=== PATIENT | female | born 1955 | race African-American/Black ===

== ENCOUNTER 2016-12-23 15:48 | Emergency (ER) | payer OTHER ==
[~2016-12-23] VITALS: Ht 162.6 cm; Wt 87.3 kg
[2016-12-23 15:51] VITALS: BP 121/86; PULSE 78; RESP 18; O2SAT 100
--- NOTE | 2016-12-23 16:06 | ED.REPORT ---
HPI-General Illness Date of Service Dec 23, 2016 ED Provider: Erick Mancilla MD The patient is a 61 year old female with history of congestive heart failure and dilated cardiomyopathy on Coreg and furosemide, who presents to the emergency department from urgent care for shortness of breath that began 3 days ago. Her symptoms have worsened throughout the day. She has also noticed a cough and wheezing. Her symptoms are worse with exertion. She has had similar symptoms in the past when she was diagnosed with congestive heart failure. She denies fever, chills, productive cough, congestion, ear pain, chest pain, nausea , vomiting or diarrhea. Nursing Notes Stated Complaint: SOB Chief Complaint: Respiratory Distress Nursing Notes Reviewed: Yes Allergies: Coded Allergies: Penicillins (Verified Allergy, Unknown, Rash, 12/23/16) Scheduled Carvedilol (Carvedilol) 12.5 Mg Tablet 12.5 MG PO BID Digoxin (Digoxin) 250 Mcg Tablet 250 MCG PO QAM Folic Acid (Folic Acid) 0.8 Mg Tablet 0.8 MG PO DAILY Furosemide (Furosemide) 20 Mg Tab 20 MG PO QAM Levocarnitine Tartrate (l-Carnitine) 500 Mg Capsule 1,000 MG PO DAILY Lisinopril (Lisinopril) 10 Mg Tablet 5 MG PO BID [place]-3/Dha/Epa/Fish Oil (Fish Oil 1,400 mg Softgel) 1 Each Capsule.dr 1 EACH PO DAILY Selenium (Selenium) 100 Mcg Tablet 100 MCG PO DAILY Spironolactone (Spironolactone) 25 Mg Tablet 12.5 MG PO QAM Turmeric Root Extract (Turmeric) 500 Mg Capsule 1,000 MG PO DAILY Zinc Gluconate (Zinc) 30 Mg Tablet 30 MG PO DAILY General Time Seen by MD: 16:05 Chief Complaint Other (shortness of breath) Hx Obtained From: Patient Arrived By: Walk-in Sudden in Onset?: No Onset Occurred: 3 days ago Symptom Duration: Since onset Severity: Current: No pain currently Severity: Maximum: No pain Recent Healthcare: No recent doctor visit, No recent hospitalization Similar Sx Previous: Yes Past Medical History Past Medical History Notes: Technical Illustrations Map Inker: Dr. Blair Past Medical History CHF Dilated cardiomyopathy Social History Other Social History: Good social support, Local resident Ambulatory Status Independent Review of Systems Full Review of Systems Constitutional: Denies: Chills, Fever Ears / Nose / Throat: Denies: Earache bilateral, Nasal congestion Respiratory: Reports: Non-productive cough, Shortness of breath, Wheezing, Denies: Prod cough, bloody, Prod cough, brown, Prod cough, clear, Prod cough , green, Prod cough, white, Prod cough, yellow Cardiovascular: Denies: Chest pain GI: Denies: Abdominal pain, Diarrhea, Vomiting Complete sys rev & neg: except as marked. Physical Exam Vital Signs Vital Signs Date Time Temp Pulse Resp B/P Pulse Ox O2 Delivery O2 Flow Rate FiO2 12/23/16 17:34 36.7 72 120/77 99 Room Air 12/23/16 15:51 37.2 78 18 121/86 100 Nasal Cannula Initial VS: Reviewed Head / Eyes: Atraumatic, Normocephalic, PERRL ENT: Mucous membranes moist, Conjunctiva normal, No scleral icterus Neck: Supple, Non-tender, Full range of motion Lymphatic: No lymphadenopathy Extremities: Vascular intact, Neuro intact Skin: Warm, Dry, No cyanosis Neurologic: Alert, Oriented, Nonfocal Psychiatric: Mood/affect normal, Behavior normal, Normal thought content General/Constitutional: Awake, Alert, Cooperative Respiratory / Chest: Breath sounds = bilat, No respiratory distress, No stridor , No chest tenderness, No chest wall deformity Scattered crackles at the bases. No wheezing. Cardiovascular: Heart rate NL, Regular rhythm, Heart sounds NL, No gallop, No murmurs, No rubs, Cap refill not delayed, Peripheral circulation NL Abdomen: Atraumatic, Soft, Non-tender, No guarding, No rebound, BS normoactive , No distention Lower Extremity / Pelvis / MS: Neurologic intact, Vascular intact Trace bilateral lower extremity pitting edema. No unilateral calf swelling or tenderness. Interpretation & Diagnostics Lab Results Interpretation Result Diagram: 12/23/16 1607 12/23/16 1607 Test 12/23/16 16:07 White Blood Count 7.8th/mm3 (3.8-10.1) Red Blood Count 4.21mil/mm3 (3.90-5.20) Hemoglobin 13.1g/dL (12.0-15.6) Hematocrit 39.4% (35.0-46.0) Mean Corpuscular Volume 93.6fL (81-100) Mean Corpuscular Hemoglobin 31.1pg (27.0-35.0) Mean Corpuscular Hemoglobin Concent 33.2% (32.0-37.0) Red Cell Distribution Width 12.1% (12.3-15.4) Platelet Count 287bil/L (150-400) Neutrophils (%) (Auto) 46.9% (40-74) Lymphocytes (%) (Auto) 40.9% (14-46) Monocytes (%) (Auto) 8.6% (4-12) Eosinophils (%) (Auto) 3.4% (0-5) Basophils (%) (Auto) 0.1% (0-3) Hold Purple Top Tube Received (Received) Hold Blue Top Tube Received (Received) Urine Color Yellow (YELLOW) Urine Appearance Clear (CLEAR,HAZY) Urine pH 5.5 (5.0-8.0) Urine Specific [place] 1.020 (1.003-1.035) Urine Protein Negativemg/dL (NEG,TRACE) Urine Glucose (UA) Negativemg/dL (NEGATIVE) Urine Ketones Negativemg/dL (NEGATIVE) Urine Occult Blood Negative (NEGATIVE) Urine Nitrite Negative (NEGATIVE) Urine Bilirubin Negative (NEGATIVE) Urine Urobilinogen Normalmg/dL (NORMAL) Urine Leukocyte Esterase Negative (NEGATIVE) Urine RBC 0-2/hpf (0-2) Urine WBC 0-5/hpf (0-5) Urine Epithelial Cells Few/hpf (NONE-MOD) Urine Crystals None seen (NONE SEEN) Urine Bacteria Few/hpf (NONE-FEW) Urine Hyaline Casts None/lpf (NONE) Urine Granular Casts None seen (NONE SEEN) Urine Waxy Casts None seen (NONE SEEN) Urine Red Blood Cell Casts None seen (NONE SEEN) Urine White Blood Cell Casts None seen (NONE SEEN) Urine Mucus None seen (None Seen) Urine Trichomonas None seen (NONE SEEN) Urine Yeast None (NONE SEEN) Urinalysis Comment None Urine Culture Reflexed Not indicated Hold Urine Received (Received) Sodium Level 139mEq/L (134-144) Potassium Level 4.2mEq/L (3.5-5.2) Chloride Level 100mEq/L (97-108) Carbon Dioxide Level 22mmol/L (18-29) Blood Urea Nitrogen 14mg/dL (8-27) Creatinine 0.82mg/dL (0.57-1.00) Estimat Glomerular Filtration Rate 91mL/min (>59) Glucose Level 106mg/dL (60-99) Calcium Level 10.1mg/dL (8.5-10.1) Total Bilirubin 0.3mg/dL (0.0-1.2) Aspartate Amino Transf (AST/SGOT) 23U/L (0-50) Alanine Aminotransferase (ALT/SGPT) 26U/L (0-32) Alkaline Phosphatase 73U/L (25-165) Troponin T < 0.010ug/L (0.0-0.011) Pro-B-Type Natriuretic Peptide 15.02pg/mL (0-287) Total Protein 8.2g/dL (6.4-8.4) Albumin 4.5g/dL (3.4-5.0) Hold Red Top Tube Received (Received) Hold [place] Top Tube Received (Received) ECG Interpretation ECG Interpretation: Sinus rhythm with a rate of 71 bpm There are diffuse T wave inversions in the anterolateral leads as well as lead III, aVF, and lead II No ST segment elevation The only prior EKG I could find was from 2009 and is very low quality scan however it appears that T wave inversions are now more pronounced Time: 16:25 Interpreted by: ED physician X-Ray Chest Interpretation Chest Xray Interpretation: IMPRESSION: Mild cardiomegaly, without acute cardiopulmonary disease. Dictated by: Richard Oshea M.D. on 12/23/2016 at 16:25 Interpretation / Wet Read by: Interpret - Radiologist Re-Eval/Medical Decision Med Decision/Clinical Course The patient is a 61 year old female with history of congestive heart failure and dilated cardiomyopathy on Coreg and furosemide, who presents to the emergency department from urgent care for shortness of breath that began 3 days ago. Her symptoms have worsened throughout the day. She has also noticed a cough and wheezing. Her symptoms are worse with exertion. She has had similar symptoms in the past when she was diagnosed with congestive heart failure. She denies fever, chills, productive cough, congestion, ear pain, chest pain, nausea , vomiting or diarrhea. Here in the emergency department the patient is afebrile, hemodynamically stable and in no apparent distress. Reviewed echocardiogram from 07/03/2010 -Impression: Severe ventricular enlargement with severe global systolic dysfunction, consistent with dilated cardiomyopathy. Moderate right ventricular dysfunction. Moderate mitral dysfunction. Mild pulmonary hypertension. Mild biatrial enlargement. Small circumferential pericardial effusion. Interpreted by Adonay Keita M.D. CXR: mild cardiomegaly, no pulmonary edema or focal pneumonia. LABS: CBC unremarkable, CMP unremarkable, troponin negative, BNP 15, UA unremarkable Symptoms are mild and at this time she has 100% oxygen saturation on room air. No evidence of pulmonary edema or decompensated congestive heart failure. There is no evidence of pneumonia or pneumothorax. The patient is comfortable and in no apparent distress. She is taking all of her prescribed medications. She has no recent major risk factors for pulmonary embolism and her presentation is not suggestive thereof. Patient was discussed with her manufacturing planner and reviewed her workup and presentation thus far. She will be seen in clinic tomorrow at 2 PM for an echocardiogram. It is not felt that she requires admission at this time. While she reports some wheezing there is no wheezing auscultated on exam she has no history of response to bronchodilators. I do not feel that this will be of much help. Prior to discharge follow-up and return precautions were reviewed in detail with the patient who verbalized understanding and agreement with the plan. The patient was discharged in stable condition. Source of Hx: Old records Time of Eval: 16:59 Re-Evaluation/Progress Note: Discussed plan for workup. Time of Eval: 17:10 Re-Evaluation/Progress Note: Rechecked the patient. Discussed plan for discharge. All questions were addressed. Consultation #1: Referral / Consult Name: Martin Blair MD Consulted With: Cardiology Call Returned at: 16:55 Back Winder: Agrees with eval, Agrees with plan Note: Agrees with plan for workup for CHF exacerbation Consultation #2: Referral / Consult Name: Martin Blair MD Consulted With: Cardiology Requested Call at: 17:07 Call Returned at: 17:09 Back Winder: Will see in office, Agrees with eval, Agrees with plan Counseled Regarding: Diagnosis, Lab results, Need for follow-up, When/why to return to ED Discharge & Departure Primary Impression: Shortness of breath Additional Impressions: History of congestive heart failure Dilated cardiomyopathy Wheezing Disposition: Home Discharge Condition All VS Reviewed: Yes Condition: Stable Additional Instructions: Thank you for seeking care at the emergency room. Our primary goal today in the ED was to evaluate you for any life-threatening conditions. Your evaluation was reassuring. I spoke to Dr. Blair and he would like you to go to his office tomorrow at 2 PM for an echocardiogram. Please arrive early for check-in. You should return to the ED immediately if you develop increased work of breathing, chest pain, fevers, vomiting, lightheadedness, weakness or any other concerning signs or symptoms. Thank you for letting us partake in your care today. Referrals: Juvenal Garcia (PCP) Martin Blair MD Scribe Attestation Portions of this note were transcribed by Devora Hernandez. I, Dr. Mancilla personally performed the history, physical exam and medical decision-making; I reviewed and confirmed the accuracy of the information in the transcribed note. Signed by: Aishwarya Sarabia, 12/23/2016 at 1725. copies to: Martin Blair MD; Juvenal Garcia Beck O MD Dec 23, 2016 16:06 Devora Hernandez Dec 23, 2016 16:21
[2016-12-23 16:21] LABS: BASOPHILS % (AUTO) 0.1 % (0-3); EOSINOPHILS % (AUTO) 3.4 % (0-5); MONOCYTES % (AUTO) 8.6 % (4-12); Mean Corpuscular Hemoglobin 31.1 pg (27.0-35.0); Mean Corpuscular Volume 93.6 fL (81-100); NEUTROPHILS % (AUTO) 46.9 % (40-74); Platelet Count 287 bil/L (150-400)
--- NOTE | 2016-12-23 16:27 | DRSVH ---
PROCEDURE: X-RAY CHEST ONE VIEW, PORTABLE ([id number]) INDICATIONS: 61 year-old female with dyspnea. TECHNIQUE: One view of the chest was acquired. COMPARISON: [facility], CHEST 2 VIEW, 01/27/2012, 16:50. [facility], CHEST 2 VIEW, 07/05/2010, 13:36. [facility], CHEST 2 VIEW, 07/02/2010, 11:28. FINDINGS: Surgical changes and devices: None. Lungs and pleura: No pleural effusions or pneumothorax. Lungs are clear. Mediastinum: Mediastinal contours appear normal. There is mild cardiomegaly, decreased since 2009. Bones and chest wall: No suspicious bony lesions. Overlying soft tissues appear unremarkable. IMPRESSION: Mild cardiomegaly, without acute cardiopulmonary disease. Dictated by: Richard Oshea M.D. on 12/23/2016 at 16:25 Approved by: Richard Oshea M.D. on 12/23/2016 at 16:26
[2016-12-23 16:33] LABS: APPEARANCE,URINE CLEAR (CLEAR,HAZY); COLOR,URINE YELLOW (YELLOW); OCCULT BLOOD,URINE NEGATIVE (NEGATIVE); PH,URINE 5.5 (5.0-8.0); UROBILINOGEN,URINE NORMAL (NORMAL)
[2016-12-23] MEDS ORDERED: OMEG-15 PO (16:40)
[2016-12-23] MEDS ORDERED: LISI10TA PO (16:40)
[2016-12-23] MEDS ORDERED: FUR20 PO (16:40)
[2016-12-23] MEDS ORDERED: LEVO500C PO (16:40)
[2016-12-23] MEDS ORDERED: SELE100T PO (16:40)
[2016-12-23] MEDS ORDERED: TURM500C7 PO (16:40)
[2016-12-23] MEDS ORDERED: ZINC30TA2 PO (16:40)
[2016-12-23] MEDS ORDERED: DIGO250T72 PO (16:40)
[2016-12-23] MEDS ORDERED: SPIR25TA3 PO (16:40)
[2016-12-23] MEDS ORDERED: CARV12.52 PO (16:40)
[2016-12-23] MEDS ORDERED: FOLI0.8T PO (16:40)
[2016-12-23 17:01] LABS: TROPONIN T < 0.010 ug/L (0.0-0.011)
[2016-12-23 17:34] VITALS: BP 120/77; PULSE 72; O2SAT 99
[2017-01-09] MEDS ORDERED: CHOL200047 PO (14:12)
[2017-01-09] MEDS ORDERED: UBID100C25 PO (14:12)
== END 2016-12-23 17:35 | disposition home or self-care (01) ==
LOC: SED 15:48
DX: I42.0 Dilated cardiomyopathy (principal); R06.2 Wheezing; I50.9 Heart failure, unspecified; Z88.0 Allergy status to penicillin

== ENCOUNTER 2017-01-10 00:06 | Day surgery (SDC) | payer OTHER ==
[2017-01-10] VITALS (10 sets, daily range): BP systolic 116–129; BP diastolic 68–83; PULSE 65–74; RESP 15–22; O2SAT 98–100
[~2017-01-10] VITALS: Ht 162.6 cm; Wt 87.6 kg
[~2017-01-10 00:06] MED LIST: CARV12.52 PO; CHOL200047 PO; DIGO250T72 PO; FOLI0.8T PO; FUR20 PO; LISI10TA PO; OMEG-15 PO; SPIR25TA3 PO; UBID100C25 PO
[2017-01-10 08:28] LABS: BASOPHILS % (AUTO) 0.4 % (0-3); EOSINOPHILS % (AUTO) 3.5 % (0-5); MONOCYTES % (AUTO) 8.5 % (4-12); Mean Corpuscular Hemoglobin 31.2 pg (27.0-35.0); Mean Corpuscular Volume 93.1 fL (81-100); Platelet Count 226 bil/L (150-400)
[2017-01-10 08:45] LABS: INR 0.95 ratio
[2017-01-10] MEDS ORDERED: fentaNYL-PF 50 mCg/mL 2 mL Inj ONE (09:18)
[2017-01-10] MEDS ORDERED: 0.9% Sodium Chloride 1,000 ML IV PRN (11:08)
[2017-01-10] MEDS ORDERED: 0.9% Sodium Chloride 250 ML IV PRN (11:08)
[2017-01-10] MEDS ORDERED: HYDROcodone-APAP 5-325 mg Tablet PO PRN (11:10)
[2017-01-10] MEDS ORDERED: Ondansetron 2 mg/mL 2 mL Inj IVPUSH PRN (11:10)
[2017-01-10] MEDS ORDERED: Atropine 1 mg/10 mL (Code) Syringe IVPUSH PRN (11:10)
--- NOTE | 2017-01-10 11:17 | CS94 ---
[address] [address] DIAGNOSTIC CARDIAC CATHETERIZATION PATIENT: GRAHAM SAM : 1955 MR#: [id number] ADMIT: 01/10/2017 JOB ID: [id number] SERVICE DATE: 01/10/2017 INDICATION: Cardiomyopathy. CONSENT: The patient was explained the risks, benefits, and alternatives of the procedure. Informed signed consent was obtained and placed in the chart. PROCEDURE: 1. Right heart catheterization. 2. Selective left and right coronary angiography. 3. Left ventricular cineangiography. DESCRIPTION OF PROCEDURE: The patient was brought to the cath laboratory and placed on the cath table. Both groins were prepped and draped in the usual sterile manner. Lidocaine 1% was infiltrated in the right groin area to achieve topical anesthesia. Subsequently, using a modified Seldinger technique, an arterial sheath and venous sheath was placed in the right femoral artery and vein respectively in a standard manner. The [place] catheter was advanced under direct fluoroscopy into the right femoral vein. The catheter was advanced into the right pulmonary artery. Pulmonary artery occlusive pressures as well as saturations were obtained. PA pressures and saturations were obtained. Cardiac output by thermodilution method as well as AINSLEY method were obtained in the standard manner. Similarly hemodynamics of the right ventricular and right atrium were obtained. After the completion of the right heart catheterization, the [place] catheter was withdrawn. FR4 catheter was advanced over the guidewire into the right pulmonary artery and placed at the ostium of the left main coronary artery. Left coronary angiography was performed in multiple projections. Subsequently, FR4 catheter was used to engage the right coronary artery. Multiple views of the right coronary artery were obtained in multiple projections. A pigtail catheter was advanced over the guidewire and placed in the left ventricular cavity. Left ventricular hemodynamics was obtained. Subsequently, left ventricular cineangiography was obtained in the standard right anterior oblique views. HEMODYNAMICS: The pulmonary capillary wedge pressure was measured at 7/12 with a mean of 2. Pulmonary artery pressure was 25/5 with a mean of 13 mmHg. RV pressure was 29 with an RVEDP of 1. The RA pressure was 11/4 with a mean of 0. The aortic pressure was 146/82 with a mean of 110 and LV pressure was 140/70 with a LVEDP of 18 mmHg. The oxygen saturation, the RA was 65, RV 66, PA 65/92%. The cardiac output by thermodilution method was 5.84 with a cardiac index of 3.03. AINSLEY method cardiac output of 5.92 with a cardiac index of 3.07 L/minute/m2. The LV hemodynamics: The left ventricular end-diastolic pressure was measured from 18-20 mmHg. Discordant numbers within the left ventricular end-diastolic pressure and pulmonary capillary wedge pressure is likely due to dehydration as patient was fasting prior to the procedure. The patient was administered approximately 500 cc of IV fluids prior to the procedure as well. CORONARY ANGIOGRAPHY: The left main coronary artery is angiographically normal. The left anterior descending artery and left circumflex coronary artery with side branches are angiographically normal. The right coronary artery is angiographically normal. IMPRESSION: 1. Angiographically normal coronaries. 2. Normal right heart hemodynamics. 3. Normal RV function and LV function. 4. No evidence of intracardiac shunt.
--- NOTE | 2017-01-10 12:39 | NUR ---
Pt assisted out of bed to bathroom, states she feels "drunk" as if she is now feeling the effects of sedation.She is stable, ambulating, no c/o nausea. Right groin without hematoma or bleeding after ambulating to bathroom.encouraged patient to sleep a little while.
--- NOTE | 2017-01-10 13:06 | NUR ---
Right groin remains stable. Discharge instructions reviewed,patient to be driven home by her son.
== END 2017-01-10 23:59 | disposition home or self-care (01) ==
LOC: SOUO 00:06
PROVIDERS: ATTEND Internal Medicine Cardiovascular Disease
DX: I42.9 Cardiomyopathy, unspecified (principal); I10 Essential (primary) hypertension; I50.9 Heart failure, unspecified; Z87.891 Personal history of nicotine dependence
CPT/HCPCS: 36415; 80048; 85025; 85610; 93005; 93460; 99152; 99153; C1760; C1769; J2250; J3010; Q9967